=== PATIENT | male | born 1955 | race American Indian/Alaskan Native ===

== ENCOUNTER 2018-11-23 09:29 | Emergency (ER) | payer SELFPAY ==
[2018-11-23 09:38] VITALS: BP 160/98
--- NOTE | 2018-11-23 10:06 | Emergency Department Report ---
ED Lower Extremity HPI - General Chief Complaint: Extremity Injury, Lower Stated Complaint: GOUT PAIN Time Seen by Provider: 11/23/18 09:53 Source: patient Mode of arrival: Ambulatory Limitations: No Limitations - History of Present Illness Initial Comments: Mr. Fischer is a 63-year-old male with history of gout who presents with right knee and right facial pain for several weeks. Pain is worse in the morning. He has stiffness in his right knee. Pain is worse in the right heel in the morning. Received diagnosis of gout at urgent care center. He does not have a primary care physician. He has minimal access to health care due to lack of insurance. No trauma. He has diffuse joint pain bilateral knees and bilateral big toe. Has been recently evaluated by urgent care twice recently. He was prescribed indomethacin, colchicine, methylprednisolone. MD Complaint: other (knee foot pain) -: Gradual, month(s) (several months worse over the last few weeks) Injury: Knee: Right, Foot: Right Severity: moderate Severity scale (0 -10): 7 Improves With: other (improves throughout the day worse in the morning) Worsens With: weight bearing - Related Data Previous Rx's Medication Instructions Recorded Last Taken Type HYDROcodone/APAP 5-325 [Tiona 1 each PO Q6HR PRN #10 tablet 11/23/18 Unknown Rx 5/325] Ibuprofen [Motrin 400 MG tab] 400 mg PO TID 5 Days #15 tablet 11/23/18 Unknown Rx Allergies Allergy/AdvReac Type Severity Reaction Status Date / Time No Known Allergies Allergy Unverified 11/23/18 09:30 ED Review of Systems ROS: Stated complaint: GOUT PAIN Other details as noted in HPI Musculoskeletal: joint swelling, arthralgia Skin: change in color. denies: rash, lesions ED Past Medical Hx - Past Medical History Previous Medical History?: Yes Additional medical history: Gout - Surgical History Past Surgical History?: Yes Additional Surgical History: Left leg - Social History Smoking Status: Never Smoker Substance Use Type: Alcohol - Medications Home Medications: Home Medications Medication Instructions Recorded Confirmed Last Taken Type HYDROcodone/APAP 5-325 [Tiona 1 each PO Q6HR PRN #10 tablet 11/23/18 Unknown Rx 5/325] Ibuprofen [Motrin 400 MG tab] 400 mg PO TID 5 Days #15 tablet 11/23/18 Unknown Rx ED Physical Exam - General Limitations: No Limitations General appearance: alert, in no apparent distress - Head Head exam: Present: atraumatic, normocephalic - Neurological Exam Neurological exam: Present: alert, oriented X3 - Psychiatric Psychiatric exam: Present: normal affect, normal mood - Other Other exam information: Right knee mild edema no erythema limited extension only to 160 Right heel: Mild erythema with tenderness and swelling posterior anterior heel inferior Achilles region ED Course Vital Signs 11/23/18 09:36 Temperature 97.6 F Pulse Rate 87 Respiratory 20 Rate Blood Pressure 160/98 O2 Sat by Pulse 97 Oximetry ED Lower Extremity MDM - Medical Decision Making Mr. Fischer presents with recurrent biateral knee pain and foot pain.. I suspect Achilles tendinitis versus plantar fasciitis as the cause of his heel pain. Also suspect degenerative joint disease osteoarthritis of the right knee. I have referred Mr. Fischer to [facility]. He currently does not have any health insurance. I have also referred him to orthopedic surgeon. Critical care attestation.: If time is entered above; I have spent that time in minutes in the direct care of this critically ill patient, excluding procedure time. ED Disposition Clinical Impression: Tendinitis of ankle, Osteoarthritis, knee Disposition: - TO HOME OR SELFCARE Is pt being admited?: No Does the pt Need Aspirin: No Condition: Stable Instructions: Achilles Tendinitis (ED), Osteoarthritis (ED) Prescriptions: Ibuprofen [Motrin 400 MG tab] 400 mg PO TID 5 Days #15 tablet HYDROcodone/APAP 5-325 [Tiona 5/325] 1 each PO Q6HR PRN #10 tablet PRN Reason: Pain Referrals: LIOR PIMENTELWINAMAC MD CRUZ [Primary Care Provider] - 3-5 Days BEBA REYES MD [Staff Physician] - 3-5 Days
== END 2018-11-23 10:19 | disposition home or self-care (01) ==
LOC: ED 09:29
DX: M76.52 Patellar tendinitis, left knee (principal); M76.51 Patellar tendinitis, right knee; Z79.1 Long term (current) use of non-steroidal anti-inflammatories (NSAID)
CPT/HCPCS: 99281